=== PATIENT | male | born 1940 | race Caucasian/White ===

== ENCOUNTER 2017-06-16 19:11 | Emergency (ER) | payer OTHER, MEDICARE ==
[2017-06-16 19:25] VITALS: BP 169/83
[2017-06-16] MEDS ORDERED: Diphtheria,Pertussis(Acell),Tetanus Vaccine 0.5 ML SDV IM ONE (19:54)
[2017-06-16] MEDS ORDERED: Cephalexin 500 MG Cap PO ONE (19:55)
--- NOTE | 2017-06-16 20:08 | EDM.PDOC ---
ED HPI GENERAL MEDICAL PROBLEM - General Chief Complaint: Laceration Stated Complaint: FINGER LACERATION Time Seen by Provider: 06/16/17 19:20 Source of Information: Reports: Patient, Family (, son), RN Notes Reviewed History Limitations: Reports: Physical Impairment (Hard of hearing) - History of Present Illness INITIAL COMMENTS - FREE TEXT/NARRATIVE: The patient states that he had a coworker were attempting to move a heavy high- pressure pipe around 17:15 today. He lowered his end of the pipe onto the back of a pickup truck, onto which was welded some metal, and his left index finger was pinched between the pipe and he truck metal. The patient presents with maceration to the volar aspect of his left second finger. He is otherwise uninjured. He denies prior injury to his left second finger. The patient does not know when his last test this vaccination was. The patient's PCP is Dr. Crane. Left 2-Index finger Pain Score (Numeric/FACES): 3 - Related Data Allergies Allergy/AdvReac Type Severity Reaction Status Date / Time Penicillins Allergy Other Verified 06/16/17 19:25 Home Meds: Home Meds Allopurinol [Zyloprim] 300 mg PO DAILY 06/16/17 [History] Antiox#10/Om3/DHA/EPA/Lut/Zeax [I-Caps with Lutein-[place] 3 SFG] 1 tab PO DAILY 06/16/17 [History] Hydrochlorothiazide 25 mg PO DAILY 06/16/17 [History] Lisinopril 30 mg PO DAILY 06/16/17 [History] Metoprolol Succinate [Toprol XL] 25 mg PO DAILY 06/16/17 [History] Pravastatin [Pravachol] 20 mg PO DAILY 06/16/17 [History] amLODIPine [Norvasc] 10 mg PO DAILY 06/16/17 [History] Past Medical History Cardiovascular History: Reports: High Cholesterol, Hypertension Respiratory History: Reports: Sleep Apnea Musculoskeletal History: Reports: Gout - Past Surgical History HEENT Surgical History: Reports: Adenoidectomy, Naso-Sinus Surgery, Tonsillectomy, Other (See Below) (Uvulectomy) Musculoskeletal Surgical History: Reports: Shoulder Surgery (right, arthroscopic ), Other (See Below) (Right hand trigger finger release) Social & Family History - Tobacco Use Smoking Status *Q: Never Smoker - Caffeine Use Caffeine Use: Reports: Other Other Caffeine Use: coffee pouches - Alcohol Use Alcohol Use History: No - Recreational Drug Use Recreational Drug Use: No - Living Situation & Occupation Living situation: Reports: , with Spouse 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) ED ROS GENERAL - Review of Systems Review Of Systems: See Below Constitutional: Reports: No Symptoms HEENT: Reports: No Symptoms Respiratory: Reports: No Symptoms Cardiovascular: Reports: No Symptoms Endocrine: Reports: No Symptoms GI/Abdominal: Reports: No Symptoms : Reports: No Symptoms Musculoskeletal: Reports: No Symptoms Skin: Reports: No Symptoms Neurological: Reports: No Symptoms Psychiatric: Reports: No Symptoms Hematologic/Lymphatic: Reports: No Symptoms Immunologic: Reports: No Symptoms ED EXAM, SKIN/RASH Exam: See Below Exam Limited By: No Limitations General Appearance: Alert, WD/WN, No Apparent Distress Extremities: Other (There is a linear laceration that extends from the ulnar aspect of the left second fingernail towards the volar/ulnar aspect of the finger, just distal to the DIP. There is a macerated wound with apparent avulsion of skin extending from just distal to the DIP joint, extending to just distal to the PIP joint, on the volar/ulnar aspect of the finger. Sensation of the finger is normal. Normal flexion of the DIP, without suggestion of flexor tendon injury.) Course - Vital Signs Last Recorded V/S: Last Vital Signs Temp 36.2 C 06/16/17 19:20 Pulse 62 06/16/17 19:20 Resp 16 06/16/17 19:20 BP 169/83 H 06/16/17 19:20 Pulse Ox 95 06/16/17 19:20 - Orders/Labs/Meds Orders: Active Orders 24 hr Category Date Time Status Vaccines to be Administered [RC] PER UNIT ROUTINE Care 06/16/17 19:54 Active Fingers Second Digit Lt F1 [CR] Stat Exams 06/16/17 19:56 Taken Meds: Medications Discontinued Medications Generic Name Dose Route Start Last Admin Trade Name Freq PRN Reason Stop Dose Admin Cephalexin 500 mg 06/16/17 19:55 06/16/17 20:12 Keflex PO 06/16/17 19:56 500 mg ONETIME ONE Administration Diphtheria/Tetanus/Acell Pertussis 0.5 ml 06/16/17 19:54 06/16/17 20:09 Adacel IM 06/16/17 19:55 0.5 ml .ONCE ONE Administration - Re-Assessments/Exams Free Text/Narrative Re-Assessment/Exam: 06/16/17 20:04 The patient declined an offer for pain medication. He agreed to receive a tetanus vaccination. 06/16/17 20:30 4-view radiographs of the left second finger appear to be unremarkable. No fracture or dislocation identified. Formal read per the Radiologist pending. 06/16/17 20:35 Plan of care discussed with the patient, his , and son. I will refer the patient to Dr. Stanford Payan, a hand surgeon at [facility], as Dr. Garcia is out of town. The patient has been started on oral Keflex, and I will prescribe an additional 7 days via [facility]. Once again, the patient declined a prescription for pain medication. I will have him take ibuprofen as needed. Departure - Departure Time of Disposition: 20:35 Disposition: Home, Self-Care 01 Condition: Good Clinical Impression: Crushing injury of left index finger - Discharge Information Referrals: Raul Crane MD [Primary Care Provider] - Stanford Payan MD [Ordering Only Provider] - Forms: ED Department Discharge Additional Instructions: You were seen in the emergency room after your left index finger was crushed at work. Workup in the ER included x-rays of your finger. Your finger is not broken. The cuts to your finger are too extensive to be sewn in the ER. You will need to follow-up with a hand surgeon. Follow-up with Dr. Stanford Payan at the next available appointment. Your finger was dressed. Do not remove the dressing. Do not allow the dressing to get wet. Take [id number] ibuprofen as needed for discomfort. You have been started on the antibiotic Keflex. Take one tablet every 6 hours, as prescribed. Finish the entire prescription unless told otherwise by the hand surgeon. If any other problems, please do not hesitate to return to the ER. - My Orders Last 24 Hours: My Active Orders 06/16/17 19:54 Vaccines to be Administered [RC] PER UNIT ROUTINE 06/16/17 19:56 Fingers Second Digit Lt F1 [CR] Stat - Assessment/Plan Last 24 Hours: My Active Orders 06/16/17 19:54 Vaccines to be Administered [RC] PER UNIT ROUTINE 06/16/17 19:56 Fingers Second Digit Lt F1 [CR] Stat
--- NOTE | 2017-06-17 07:58 | CR ---
Left second finger: Four views of the left second finger were obtained. Comparison: No previous study. Soft tissue swelling is identified. No acute fracture, dislocation or other acute bony abnormality is identified. Slight degenerative change is seen within the distal second metacarpal head. Impression: 1. Soft tissue swelling. Minimal degenerative change. 2. No acute bony abnormality is identified. Diagnostic code #2
== END 2017-06-16 21:00 | disposition home or self-care (01) ==
LOC: JD.ED 19:11
DX: S61.211A Laceration without foreign body of left index finger without damage to nail, initial encounter (principal); S67.191A Crushing injury of left index finger, initial encounter; I10 Essential (primary) hypertension; E78.00 Pure hypercholesterolemia, unspecified; G47.30 Sleep apnea, unspecified; Z98.890 Other specified postprocedural states; Z79.899 Other long term (current) drug therapy; Z88.0 Allergy status to penicillin; W23.0XXA Caught, crushed, jammed, or pinched between moving objects, initial encounter; Y92.69 Other specified industrial and construction area as the place of occurrence of the external cause; Y99.0 Civilian activity done for income or pay; Z23 Encounter for immunization
CPT/HCPCS: 73140; 90471; 90715; 99284; A9270; 99283

== ENCOUNTER 2017-07-31 19:37 | Emergency (ER) | payer MEDICARE, OTHER ==
[2017-07-31 19:51] VITALS: BP 177/87
[2017-07-31] MEDS ORDERED: Acetaminophen/HYDROcodone 325-5 MG Tab PO ONE (20:05)
[2017-07-31] MEDS ORDERED: Indomethacin 25 MG Cap PO ONE (21:14)
--- NOTE | 2017-07-31 21:30 | EDM.PDOC ---
ED HPI GENERAL MEDICAL PROBLEM - General Chief Complaint: Lower Extremity Injury/Pain Stated Complaint: POSSIBLE GOUT IN RIGHT KNEE Time Seen by Provider: 07/31/17 19:49 Source of Information: Reports: Patient, Family History Limitations: Reports: No Limitations - History of Present Illness INITIAL COMMENTS - FREE TEXT/NARRATIVE: The patient presents with right knee pain. He does not remember a specific instance when he injured it. It hurts more on the medial aspect of the knee. He has no redness. He has a history of gout but he has not had an attack for 10 years. 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 He has no other pain. Onset: Gradual Duration: Day(s): Location: Reports: Lower Extremity, Right (Knee) Quality: Reports: Sharp Severity: Moderate Improves with: Reports: Immobilization Worsens with: Reports: Movement Associated Symptoms: Reports: No Other Symptoms Right Knee Pain Score (Numeric/FACES): 9 - Related Data Allergies Allergy/AdvReac Type Severity Reaction Status Date / Time Penicillins Allergy Other Verified 07/31/17 19:50 Home Meds: Home Meds Allopurinol [Zyloprim] 300 mg PO DAILY 06/16/17 [History] Antiox#10/Om3/DHA/EPA/Lut/Zeax [I-Caps with Lutein-[place] 3 SFG] 1 tab PO DAILY 06/16/17 [History] Hydrochlorothiazide 25 mg PO DAILY 06/16/17 [History] Lisinopril 30 mg PO DAILY 06/16/17 [History] Metoprolol Succinate [Toprol XL] 25 mg PO DAILY 06/16/17 [History] Pravastatin [Pravachol] 20 mg PO DAILY 06/16/17 [History] amLODIPine [Norvasc] 10 mg PO DAILY 06/16/17 [History] Indomethacin [Indomethacin ER] 75 mg PO DAILY PRN #20 capsule.er 07/31/17 [Rx] Past Medical History Cardiovascular History: Reports: High Cholesterol, Hypertension Respiratory History: Reports: Sleep Apnea Musculoskeletal History: Reports: Gout - Past Surgical History HEENT Surgical History: Reports: Adenoidectomy, Naso-Sinus Surgery, Tonsillectomy, Other (See Below) Musculoskeletal Surgical History: Reports: Shoulder Surgery, Other (See Below) Social & Family History - Tobacco Use Smoking Status *Q: Unknown Ever Smoked - Caffeine Use Caffeine Use: Reports: Other Other Caffeine Use: coffee pouches - Recreational Drug Use Recreational Drug Use: No - Living Situation & Occupation Living situation: Reports: , with Spouse 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) Review of Systems - Review of Systems Review Of Systems: See Below Constitutional: Reports: No Symptoms Eyes: Reports: No Symptoms Ears: Reports: No Symptoms Nose: Reports: No Symptoms Mouth/Throat: Reports: No Symptoms Respiratory: Reports: No Symptoms Cardiovascular: Reports: No Symptoms GI/Abdominal: Reports: No Symptoms Genitourinary: Reports: No Symptoms Musculoskeletal: Reports: Joint Pain (Right knee) ED EXAM, GENERAL - Physical Exam Exam: See Below Exam Limited By: No Limitations General Appearance: Alert, No Apparent Distress Ears: Normal External Exam Nose: Normal Inspection Head: Atraumatic, Normocephalic Neck: Normal Inspection Respiratory/Chest: No Respiratory Distress, Lungs Clear, Normal Breath Sounds Cardiovascular: Regular Rate, Rhythm, No Edema, No Murmur GI/Abdominal: Soft, Non-Tender, No Organomegaly, No Mass Extremities: Other (Mild edema and he has pain upon palpation to the right medial knee. No redness noted. He has good sensation and pulses distally.) Course - Vital Signs Last Recorded V/S: Last Vital Signs Temp 98.1 F 07/31/17 19:47 Pulse 70 07/31/17 19:47 Resp 18 07/31/17 19:47 BP 177/87 H 07/31/17 19:47 Pulse Ox 98 07/31/17 19:47 - Orders/Labs/Meds Orders: Active Orders 24 hr Category Date Time Status Knee Min 4V Rt [CR] Stat Exams 07/31/17 20:08 Taken Meds: Medications Discontinued Medications Generic Name Dose Route Start Last Admin Trade Name Maranda PRN Reason Stop Dose Admin Hydrocodone Bitart/Acetaminophen 2 tab 07/31/17 20:05 07/31/17 20:29 [place] 325-5 Mg PO 07/31/17 20:06 2 tab ONETIME ONE Administration Indomethacin 50 mg 07/31/17 21:14 07/31/17 21:20 Indocin PO 07/31/17 21:15 50 mg ONETIME ONE Administration - Re-Assessments/Exams Free Text/Narrative Re-Assessment/Exam: 07/31/17 21:35 I gave him some hydrocodone before the x-ray. The x-ray shows no FB and there is moderate osteoarthritis. I believe this is a flair up of arthritis. I will give him a dose of indomethacin and a prescription or more. Departure - Departure Time of Disposition: 21:40 Disposition: Home, Self-Care 01 Condition: Good Clinical Impression: Osteoarthritis of right knee Qualifiers: Osteoarthritis type: primary Qualified Code(s): M17.11 - Unilateral primary osteoarthritis, right knee - Discharge Information Prescriptions: Indomethacin [Indomethacin ER] 75 mg PO DAILY PRN #20 capsule.er PRN Reason: Pain Referrals: Raul Crane MD [Primary Care Provider] - Forms: ED Department Discharge Additional Instructions: Take the indomethacin daily as needed for pain. Please return if you are worse. - My Orders Last 24 Hours: My Active Orders 07/31/17 20:08 Knee Min 4V Rt [CR] Stat - Assessment/Plan Last 24 Hours: My Active Orders 07/31/17 20:08 Knee Min 4V Rt [CR] Stat
--- NOTE | 2017-08-01 08:10 | CR ---
Right knee: Four views of the right knee were obtained. Comparison: No previous knee exam. Incidental spur is noted at the attachment of the quadriceps tendon to the patella. Mild medial joint space narrowing is seen. Lateral joint space is preserved. No joint effusion is identified. No acute fracture or other abnormality is identified. Impression: 1. Mild degenerative change. 2. Nothing acute is seen. Diagnostic code #2
== END 2017-07-31 21:58 | disposition home or self-care (01) ==
LOC: JD.ED 19:37 → SUPCPDRO 19:37 → JD.ED 21:58
DX: M17.11 Unilateral primary osteoarthritis, right knee (principal); E78.00 Pure hypercholesterolemia, unspecified; I10 Essential (primary) hypertension; Z88.0 Allergy status to penicillin; Z79.899 Other long term (current) drug therapy
CPT/HCPCS: 73564; 99283; A9270

== ENCOUNTER 2018-06-25 15:44 | Emergency (ER) | payer MEDICARE, OTHER ==
[2018-06-25 16:12] VITALS: BP 170/74
--- NOTE | 2018-06-25 17:20 | EDM.PDOC ---
ED HPI GENERAL MEDICAL PROBLEM - General Chief Complaint: Lower Extremity Injury/Pain Stated Complaint: LEFT HIP Time Seen by Provider: 06/25/18 16:18 Source of Information: Reports: Patient History Limitations: Reports: No Limitations - History of Present Illness INITIAL COMMENTS - FREE TEXT/NARRATIVE: 77-year-old male presents for evaluation and treatment of pain to the left hip. Patient reports he fell about 3 weeks ago. States that he was walking tripped over a rock. He fell and hit his bilateral knees and his left hip. He states since then he has had pain to the left hip, left buttocks and lower back. Worse with movement and ambulation. Has some abrasions to his bilateral knees but no bruising or abrasions noted to the left hip. Left Hip Pain Score (Numeric/FACES): 2 - Related Data Allergies Allergy/AdvReac Type Severity Reaction Status Date / Time Penicillins Allergy Other Verified 06/25/18 16:12 Home Meds: Home Meds Allopurinol [Zyloprim] 300 mg PO DAILY 06/16/17 [History] Antiox#10/Om3/DHA/EPA/Lut/Zeax [I-Caps with Lutein-[place] 3 SFG] 1 tab PO DAILY 06/16/17 [History] Hydrochlorothiazide 25 mg PO DAILY 06/16/17 [History] Lisinopril 30 mg PO DAILY 06/16/17 [History] Metoprolol Succinate [Toprol XL] 25 mg PO DAILY 06/16/17 [History] Pravastatin [Pravachol] 20 mg PO DAILY 06/16/17 [History] amLODIPine [Norvasc] 10 mg PO DAILY 06/16/17 [History] Indomethacin [Indomethacin ER] 75 mg PO DAILY PRN #20 capsule.er 07/31/17 [Rx] metFORMIN [Glucophage XR] 500 mg PO DAILY 06/25/18 [History] Past Medical History Cardiovascular History: Reports: High Cholesterol, Hypertension Respiratory History: Reports: Sleep Apnea Musculoskeletal History: Reports: Gout - Past Surgical History HEENT Surgical History: Reports: Adenoidectomy, Naso-Sinus Surgery, Tonsillectomy, Other (See Below) Musculoskeletal Surgical History: Reports: Shoulder Surgery, Other (See Below) Social & Family History - Tobacco Use Smoking Status *Q: Never Smoker - Caffeine Use Caffeine Use: Reports: None Other Caffeine Use: coffee pouches - Recreational Drug Use Recreational Drug Use: No - Living Situation & Occupation Living situation: Reports: , with Spouse 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 Denies: Bruising ED EXAM, GENERAL - Physical Exam Exam: See Below Exam Limited By: No Limitations General Appearance: Alert, WD/WN, No Apparent Distress, Obese Respiratory/Chest: No Respiratory Distress, Lungs Clear, Normal Breath Sounds Cardiovascular: Normal Peripheral Pulses, Regular Rate, Rhythm, No Murmur Back Exam: Normal Inspection, Paraspinal Tenderness (left SI joint). No: Vertebral Tenderness Extremities: Normal Inspection (no leg shortening, no exernal rotation), Normal Range of Motion (no pain with rotation to the bilteral hips), Other (tenderness to the left iliac crest and left hip) Neurological: Alert, Oriented, Normal Cognition, Normal Gait Psychiatric: Normal Affect, Normal Mood Skin Exam: Warm, Dry, Normal Color, Wound/Incision (superficial abrasions to the bilateral knees). No: Ecchymosis Course - Vital Signs Last Recorded V/S: Last Vital Signs Temp 98.4 F 06/25/18 16:05 Pulse 55 L 06/25/18 16:05 Resp 13 06/25/18 16:05 BP 170/74 H 06/25/18 16:05 Pulse Ox 98 06/25/18 16:05 - Radiology Interpretation Free Text/Narrative:: xray of the lumbar spine shows no acute fracture or dislocation. Degenerative change. Atherosclerosis present in the aorta. xray of the pelvis and left hip shows no acute fractures or dislocations - Re-Assessments/Exams Free Text/Narrative Re-Assessment/Exam: 06/25/18 17:51 Reviewed the x-ray results with the patient. Recommend follow-up with orthopedics. Tylenol , Motrin and a cane as needed. Patient has a cane a home. Discharge instructions as documented. Departure - Departure Time of Disposition: 17:53 Disposition: Home, Self-Care 01 Condition: Fair Clinical Impression: Hip pain - Discharge Information *PRESCRIPTION DRUG MONITORING PROGRAM REVIEWED*: No *COPY OF PRESCRIPTION DRUG MONITORING REPORT IN PATIENT GLORIA: No Instructions: Hip Pain Referrals: Raul Crane MD [Primary Care Provider] - Alvin Patel MD [Physician] - Forms: ED Department Discharge Additional Instructions: [id number] Tylenol or Motrin as needed for pain relief. Use a cane as needed for discomfort with ambulation. may try ice or heat for additional pain relief. Follow-up with orthopedics. Recommend Dr. Lozada. Call [phone] to schedule with him. Please return the ER if your symptoms change or worsen. r
--- NOTE | 2018-06-28 06:52 | CR ---
Pelvis and left hip: AP view of the pelvis was obtained as well as AP and frog-leg lateral views of the right and left hip. Comparison: No prior study. Joint spaces within both hips are maintained. Sacroiliac joints are within normal limits. No acute fracture or other bony abnormality is identified. Slight vascular calcification is noted. Impression: 1. No acute abnormality is identified on AP pelvis or on two-view left hip exam. Diagnostic code #2
--- NOTE | 2018-06-28 06:52 | CR ---
Lumbar spine: AP and lateral views of the lumbar spine were obtained. Comparison: No prior lumbar spine study. Mild disc space narrowing is noted at T12-L1 through L2-L3. Slight posterior disc space narrowing is noted at L5-S1. Scattered endplate osteophytes are seen. Pedicles are intact. Transverse and spinous processes are intact. Sacroiliac joints are within normal limits. No fracture or other bony abnormality is seen. Vascular calcification is noted. Impression: 1. Degenerative change as described above. Vascular calcification. 2. Nothing acute is identified on two-view lumbar spine study. Diagnostic code #1
== END 2018-06-25 18:03 | disposition home or self-care (01) ==
LOC: JD.ED 15:44 → SUPCPDRO 15:44 → JD.ED 18:03
DX: S80.212A Abrasion, left knee, initial encounter (principal); S80.211A Abrasion, right knee, initial encounter; M25.552 Pain in left hip; I10 Essential (primary) hypertension; E78.00 Pure hypercholesterolemia, unspecified; Z88.0 Allergy status to penicillin; Z79.899 Other long term (current) drug therapy; W19.XXXA Unspecified fall, initial encounter
CPT/HCPCS: 72100; 72100-26; 73502-26-LT; 73502-LT; 99283

== ENCOUNTER → 2019-10-23 | Day surgery (SDC) | payer BC, MEDICARE, OTHER ==
[~2019-10-23] MED LIST: Lidocaine 1% PF 2 ML SDV INJECT SCH; Pilocarpine 4% Ophth Soln 15 ML Bot EYERT SCH; Tetracaine HCl/PF 0.5% 4 ML Bottle EYERT SCH
[2019-10-23] MEDS: Polymyxin B/Trimethoprim 10 ML Bottle EYERT SCH ×2 (11:22→12:06)
[2019-10-23] MEDS: Brimonidine 0.2% Ophth Soln 5 ML Bottle EYERT SCH ×2 (11:27→12:13)
[2019-10-23 11:30] VITALS: BP 126/64; PULSE 53
[2019-10-23] MEDS: Phenylephrine 2.5% Ophth Soln 2 ML Bot EYERT SCH ×4 (11:32→12:23)
[2019-10-23] MEDS: Tropicamide 1% Ophth Soln 15 ML Bottle EYERT SCH ×4 (11:37→12:30)
--- NOTE | 2019-10-23 11:53 | PCM.PREANE ---
Preanesthetic Assessment - Anesthesia/Transfusion/Family Hx Anesthesia History: Prior Anesthesia Without Reaction Family History of Anesthesia Reaction: No Transfusion History: No Prior Transfusion(s) - Review of Systems General: No Symptoms, Other (obesity) Pulmonary: Other (asthma, ALEXUS with HTN) Cardiovascular: Other (HTN) Gastrointestinal: No Symptoms Neurological: No Symptoms Other: Reports: None - Physical Assessment NPO Status Date: 10/22/19 NPO Status Time: 22:00 Vital Signs: Last Vital Signs Temp 36.7 C 10/23/19 11:13 Pulse 53 L 10/23/19 11:13 Resp 16 10/23/19 11:13 BP 126/64 10/23/19 11:13 Pulse Ox 95 10/23/19 11:13 Height: 1.8 m Weight: 127.006 kg ASA Class: 2 Mental Status: Alert & Oriented x3 Airway Class: Mallampati = 3 Dentition: Reports: Normal Dentition Thyro-Mental Finger Breadths: 3 Mouth Opening Finger Breadths: 3 ROM/Head Extension: Full Lungs: Clear to Auscultation, Normal Respiratory Effort Cardiovascular: Regular Rate, Regular Rhythm - Allergies Allergies/Adverse Reactions: Allergies Allergy/AdvReac Type Severity Reaction Status Date / Time Penicillins Allergy Other Verified 10/22/19 15:32 - Blood Blood Available: No Product(s) Available: None - Anesthesia Plan Beta Marshall: Metoprolol Med Last Dose Date: 10/22/19 Med Last Dose Time: 15:30 - Acknowledgements Anesthesia Type Planned: MAC Pt an Appropriate Candidate for the Planned Anesthesia: Yes Alternatives and Risks of Anesthesia Discussed w Pt/Guardian: Yes Pt/Guardian Understands and Agrees with Anesthesia Plan: Yes PreAnesthesia Questionnaire Cardiovascular History: Reports: High Cholesterol, Hypertension Respiratory History: Reports: Sleep Apnea Musculoskeletal History: Reports: Gout - Past Surgical History HEENT Surgical History: Reports: Adenoidectomy, Naso-Sinus Surgery, Tonsillectomy, Other (See Below) Musculoskeletal Surgical History: Reports: Shoulder Surgery, Other (See Below) - HOME MEDS Home Medications: Home Meds Allopurinol [Zyloprim] 300 mg PO DAILY 06/16/17 [History] Antiox.mv No.10/Omeg3s/Lut/John [I-Caps with Lutein-[place] 3 SFG] 1 tab PO DAILY 06/16/17 [History] Hydrochlorothiazide 25 mg PO DAILY 06/16/17 [History] Lisinopril 30 mg PO DAILY 06/16/17 [History] Metoprolol Succinate [Toprol XL] 25 mg PO DAILY 06/16/17 [History] Pravastatin [Pravachol] 20 mg PO DAILY 06/16/17 [History] Diltiazem HCl [Cardizem Cd] 180 mg PO DAILY 10/22/19 [History] Pravastatin [Pravachol] 20 mg PO DAILY 10/22/19 [History] - CURRENT (IN HOUSE) MEDS Current Meds: Current Medications Brimonidine Tartrate (Alphagan 0.2% Ophth Soln) 0 ml EYERT ASDIRECTED IRISH Stop: 10/23/19 18:00 Last Admin: 10/23/19 11:27 Dose: 1 drop Lidocaine HCl (Xylocaine-Mpf 1%) 1 ml INJECT ASDIRECTED IRISH Stop: 10/23/19 18:00 Phenylephrine HCl (Dean-Synephrine 2.5% Ophth Soln) 0 ml EYERT ASDIRECTED IRISH Stop: 10/23/19 18:00 Last Admin: 10/23/19 11:32 Dose: 1 drop Pilocarpine HCl (Pilocar 4% Ophth Soln) 0 ml EYERT ASDIRECTED IRISH Stop: 10/23/19 18:00 Polymyxin/Trimethoprim Sulfate (Polytrim Ophth Soln) 0 ml EYERT ASDIRECTED IRISH Stop: 10/23/19 18:00 Last Admin: 10/23/19 11:22 Dose: 1 drop Tetracaine HCl (Tetracaine 0.5% Steri-Unit Jo) 0 ml EYERT ASDIRECTED IRISH Stop: 10/23/19 18:00 Tropicamide (Mydriacyl 1% Oph Soln) 0 ml EYERT ASDIRECTED IRISH Stop: 10/23/19 18:00 Last Admin: 10/23/19 11:37 Dose: 1 drop
--- NOTE | 2019-10-23 13:31 | PCM48HPAN ---
Post Anesthesia Note - EVALUATION WITHIN 48HRS OF ANESTHETIC Vital Signs in Normal Range: Yes Patient Participated in Evaluation: Yes Respiratory Function Stable: Yes Airway Patent: Yes Cardiovascular Function Stable: Yes Hydration Status Stable: Yes Pain Control Satisfactory: Yes Nausea and Vomiting Control Satisfactory: Yes Mental Status Recovered: Yes Vital Signs: Last Vital Signs Temp 36.7 C 10/23/19 11:13 Pulse 53 L 10/23/19 11:13 Resp 16 10/23/19 11:13 BP 126/64 10/23/19 11:13 Pulse Ox 95 10/23/19 11:13
== END ==
LOC: JD.SDS 10:45
PROVIDERS: ATTEND Ophthalmology
DX: H25.813 Combined forms of age-related cataract, bilateral (principal); H35.363 Drusen (degenerative) of macula, bilateral; H35.3132 Nonexudative age-related macular degeneration, bilateral, intermediate dry stage; H02.834 Dermatochalasis of left upper eyelid; H02.831 Dermatochalasis of right upper eyelid; H16.103 Unspecified superficial keratitis, bilateral; H16.223 Keratoconjunctivitis sicca, not specified as Sjogren's, bilateral; E78.00 Pure hypercholesterolemia, unspecified; I10 Essential (primary) hypertension; M10.9 Gout, unspecified; Z88.0 Allergy status to penicillin
CPT/HCPCS: 66984; C1780

== ENCOUNTER 2019-11-29 07:11 | Day surgery (SDC) | payer BC, MEDICARE ==
[2019-11-29] MEDS: Polymyxin B/Trimethoprim 10 ML Bottle EYELF SCH ×4 (07:28→09:25)
[2019-11-29] MEDS: Brimonidine 0.2% Ophth Soln 5 ML Bottle EYELF SCH ×4 (07:33→09:25)
[2019-11-29] MEDS: Phenylephrine 2.5% Ophth Soln 2 ML Bot EYELF SCH ×6 (07:38→09:22)
[2019-11-29] MEDS: Tropicamide 1% Ophth Soln 15 ML Bottle EYELF SCH ×4 (07:43→08:34)
--- NOTE | 2019-11-29 07:43 | PCM.PREANE ---
Preanesthetic Assessment - Anesthesia/Transfusion/Family Hx Anesthesia History: Prior Anesthesia Without Reaction Family History of Anesthesia Reaction: No Transfusion History: No Prior Transfusion(s) Intubation History: Unknown - Review of Systems General: No Symptoms Pulmonary: No Symptoms Cardiovascular: No Symptoms (HTN), Lightheadedness (postural changes) Gastrointestinal: No Symptoms (GERD with certain foods) Neurological: No Symptoms Other: Reports: None - Physical Assessment NPO Status Date: 11/28/19 NPO Status Time: 16:00 Vital Signs: HR: 53 BP: 132/65 Sat: 94% Temp: 97 Resp: 16 Height: 1.83 m Weight: 168 kg ASA Class: 2 Mental Status: Alert & Oriented x3 Airway Class: Mallampati = 2 Dentition: Reports: Normal Dentition, Missing Tooth/Teeth, Caries Thyro-Mental Finger Breadths: 3 Mouth Opening Finger Breadths: 3 ROM/Head Extension: Full Lungs: Clear to Auscultation, Normal Respiratory Effort Cardiovascular: Regular Rate, Regular Rhythm - Allergies Allergies/Adverse Reactions: Allergies Allergy/AdvReac Type Severity Reaction Status Date / Time Penicillins Allergy Rash Verified 11/26/19 14:48 - Anesthesia Plan Pre-Op Medication Ordered: Beta Marshall Beta Marshall: Metoprolol Med Last Dose Date: 11/28/19 Med Last Dose Time: 16:00 - Acknowledgements Anesthesia Type Planned: MAC Pt an Appropriate Candidate for the Planned Anesthesia: Yes Alternatives and Risks of Anesthesia Discussed w Pt/Guardian: Yes Pt/Guardian Understands and Agrees with Anesthesia Plan: Yes PreAnesthesia Questionnaire Cardiovascular History: Reports: High Cholesterol, Hypertension Respiratory History: Reports: Sleep Apnea Musculoskeletal History: Reports: Gout - Past Surgical History HEENT Surgical History: Reports: Adenoidectomy, Naso-Sinus Surgery, Tonsillectomy, Other (See Below) Musculoskeletal Surgical History: Reports: Shoulder Surgery, Other (See Below) - HOME MEDS Home Medications: Home Meds Allopurinol [Zyloprim] 300 mg PO BEDTIME 06/16/17 [History] Antiox.mv No.10/Omeg3s/Lut/John [I-Caps with Lutein-[place] 3 SFG] 1 tab PO BEDTIME 06/16/17 [History] Hydrochlorothiazide 50 mg PO BEDTIME 06/16/17 [History] Lisinopril 30 mg PO BEDTIME 06/16/17 [History] Diltiazem HCl [Cardizem Cd] 180 mg PO BEDTIME 10/22/19 [History] Metoprolol Succinate 100 mg PO BEDTIME 11/26/19 [History] Pravastatin [Pravachol] 20 mg PO BEDTIME 11/26/19 [History] - CURRENT (IN HOUSE) MEDS Current Meds: Current Medications Brimonidine Tartrate (Alphagan 0.2% Ophth Soln) 0 ml EYELF ASDIRECTED IRISH Stop: 11/29/19 18:00 Lidocaine HCl (Xylocaine-Mpf 1%) 0 ml INJECT ASDIRECTED IRISH Stop: 11/29/19 18:00 Phenylephrine HCl (Dean-Synephrine 2.5% Ophth Soln) 0 ml EYELF ASDIRECTED IRISH Stop: 11/29/19 18:00 Pilocarpine HCl (Pilocar 4% Ophth Soln) 0 ml EYELF ASDIRECTED IRISH Stop: 11/29/19 18:00 Polymyxin/Trimethoprim Sulfate (Polytrim Ophth Soln) 0 ml EYELF ASDIRECTED IRISH Stop: 11/29/19 18:00 Tetracaine HCl (Tetracaine 0.5% Steri-Unit Jo) 0 ml EYELF ASDIRECTED IRISH Stop: 11/29/19 18:00 Tropicamide (Mydriacyl 1% Ophth Soln) 0 ml EYELF ASDIRECTED IRISH Stop: 11/29/19 18:00
[2019-11-29 08:02] VITALS: PULSE 53
[2019-11-29] MEDS: Tetracaine HCl/PF 0.5% 4 ML Bottle EYELF SCH ×3 (08:48→09:22)
[2019-11-29] MEDS: Lidocaine 1% PF 2 ML SDV INJECT SCH ×2 (09:14→09:22)
[2019-11-29] MEDS: Pilocarpine 4% Ophth Soln 15 ML Bot EYELF SCH ×2 (09:23→09:25)
--- NOTE | 2019-11-29 09:26 | PCM48HPAN ---
Post Anesthesia Note - EVALUATION WITHIN 48HRS OF ANESTHETIC Vital Signs in Normal Range: Yes Patient Participated in Evaluation: Yes Respiratory Function Stable: Yes Airway Patent: Yes Cardiovascular Function Stable: Yes Hydration Status Stable: Yes Pain Control Satisfactory: Yes Nausea and Vomiting Control Satisfactory: Yes Mental Status Recovered: Yes Vital Signs: Last Vital Signs Temp 36.1 C 11/29/19 07:15 Pulse 53 L 11/29/19 07:15 Resp 16 11/29/19 07:15 BP 132/65 11/29/19 07:15 Pulse Ox 94 L 11/29/19 07:15
[2019-11-29] MEDS ORDERED: Cefuroxime 10 MG/ML SYRINGE EYELF SCH (09:30)
[2019-11-29 09:47] VITALS: BP 130/65
== END 2019-11-29 09:36 | disposition home or self-care (01) ==
LOC: JD.SDS 07:11
PROVIDERS: ATTEND Ophthalmology
DX: H25.812 Combined forms of age-related cataract, left eye (principal); E78.00 Pure hypercholesterolemia, unspecified; I10 Essential (primary) hypertension; J45.909 Unspecified asthma, uncomplicated; M10.9 Gout, unspecified; Z88.0 Allergy status to penicillin; Z79.899 Other long term (current) drug therapy
CPT/HCPCS: 66984; J0697; J2001; C1780

== ENCOUNTER 2020-03-08 23:22 | Emergency (ER) | payer BC, MEDICARE ==
[2020-03-08 23:39] VITALS: BP 180/95; PULSE 70
[2020-03-09] MEDS ORDERED: Clindamycin Phosphate 300 MG/2 ML SDV IM ONE (00:07)
[2020-03-09] MEDS ORDERED: Morphine 4 MG/ML Syringe IM ONE (00:18)
--- NOTE | 2020-03-09 00:19 | EDM.PDOC ---
ED HPI GENERAL MEDICAL PROBLEM - General Chief Complaint: ENT Problem Stated Complaint: TOOTHACHE Time Seen by Provider: 03/08/20 23:25 Source of Information: Reports: Patient History Limitations: Reports: No Limitations - History of Present Illness INITIAL COMMENTS - FREE TEXT/NARRATIVE: TRIAGE NOTE -- Pt states hes had tooth pain in left upper teeth since tuesday. Pt has multiple broken/decaying teeth. Denies fever, nausea, and vomiting. Afebrile in ER. As above. Patient has been unable to get in to see a dentist. He probably needs a root canal. The pandemic is made dental appointments difficult. There is been no fever or any other sign of acute medical illness otherwise. No strictly identified risk factors otherwise. Has not smoked in many years. Not a diabetic. He has not taken any medication other than some occasional use of Tylenol to moderate symptoms. 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 Left Upper Tooth/Teeth Pain Score (Numeric/FACES): 9 - Related Data Allergies Allergy/AdvReac Type Severity Reaction Status Date / Time Penicillins Allergy Rash Verified 11/26/19 14:48 Home Meds: Home Meds Allopurinol [Zyloprim] 300 mg PO BEDTIME 06/16/17 [History] Antiox.mv No.10/Omeg3s/Lut/John [I-Caps with Lutein-[place] 3 SFG] 1 tab PO BEDTIME 06/16/17 [History] Hydrochlorothiazide 50 mg PO BEDTIME 06/16/17 [History] Lisinopril 30 mg PO BEDTIME 06/16/17 [History] dilTIAZem HCL [Cardizem Cd] 180 mg PO BEDTIME 10/22/19 [History] Metoprolol Succinate 100 mg PO BEDTIME 11/26/19 [History] Pravastatin [Pravachol] 20 mg PO BEDTIME 11/26/19 [History] Clindamycin HCl 300 mg PO Q8H #30 capsule 03/09/20 [Rx] Hydrocodone/Acetaminophen [Hydrocodone-Acetamin 5-300 mg] 1 each PO BID PRN #10 tablet 03/09/20 [Rx] Past Medical History Cardiovascular History: Reports: High Cholesterol, Hypertension Respiratory History: Reports: Sleep Apnea Musculoskeletal History: Reports: Gout - Past Surgical History HEENT Surgical History: Reports: Adenoidectomy, Naso-Sinus Surgery, Tonsillectomy, Other (See Below) Musculoskeletal Surgical History: Reports: Shoulder Surgery, Other (See Below) Social & Family History - Family History Family Medical History: Noncontributory - Tobacco Use Smoking Status *Q: Former Smoker Used Tobacco, but Quit: No Month/Year Tobacco Last Used: 1999 - Caffeine Use Caffeine Use: Reports: Coffee Other Caffeine Use: coffee pouches - Living Situation & Occupation Living situation: Reports: , with Spouse 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 ED EXAM, ENT - Physical Exam Exam: See Below Exam Limited By: No Limitations General Appearance: Alert, WD/WN Eye Exam: Bilateral Eye: EOMI, PERRL Ears: Normal External Exam Nose: Normal Inspection Mouth/Throat: Other (Patient has several dental crowns in varying stages of repair or deterioration. Specifically tooth #7 is broken off but not tender or problematic acutely. #10 is broken deteriorated and quite tender. No evidence of odontogenic soft tissue infection. No evidence of dental abscess.) Head: Atraumatic, Normocephalic Neck: Supple, Non-Tender Respiratory/Chest: No Respiratory Distress, Lungs Clear, Normal Breath Sounds Cardiovascular: Regular Rate, Rhythm, No Edema GI/Abdominal: Soft, Non-Tender Back: Normal Inspection Extremities: Normal Inspection, Non-Tender Neurological: Alert, Oriented, Normal Cognition, No Motor/Sensory Deficits Psychiatric: Normal Affect, Normal Mood Skin: Warm, Dry Course - Vital Signs Last Recorded V/S: Last Vital Signs Temp 36.6 C 03/08/20 23:35 Pulse 70 03/08/20 23:35 Resp 16 03/08/20 23:35 BP 180/95 H 03/08/20 23:35 Pulse Ox 96 03/08/20 23:35 - Orders/Labs/Meds Meds: Medications Discontinued Medications Generic Name Dose Route Start Last Admin Trade Name Freq PRN Reason Stop Dose Admin Clindamycin Phosphate 300 mg 03/09/20 00:07 03/09/20 00:19 Cleocin IM 03/09/20 00:08 300 mg ONETIME ONE Administration Morphine Sulfate 4 mg 03/09/20 00:18 03/09/20 00:24 Morphine IM 03/09/20 00:19 4 mg ONETIME ONE Administration Departure - Departure Time of Disposition: 00:36 Disposition: Home, Self-Care 01 Condition: Good Clinical Impression: Toothache - Discharge Information Prescriptions: Clindamycin HCl 300 mg PO Q8H #30 capsule Hydrocodone/Acetaminophen [Hydrocodone-Acetamin 5-300 mg] 1 each PO BID PRN #10 tablet PRN Reason: Pain (Moderate 4-6) Referrals: Raul Crane MD [Primary Care Provider] - Forms: ED Department Discharge Additional Instructions: You have a tooth ache that needs attention HUMBERTO. Please try to see your dentist on Tuesday or Tuesday of this coming week. In the ER you have received a dose of a narcotic, morphine, to give you some relief. Also an antibiotic is going to be required and you have received your first dose of clindamycin as a shot and this antibiotic is to be continued orally. Do not hesitate to return to the ER for any fever pain you can handle etc. Sepsis Event Note - Evaluation Sepsis Screening Result: No Definite Risk - Focused Exam Vital Signs: Vital Signs Temp Pulse Resp BP Pulse Ox 03/08/20 23:35 36.6 C 70 16 180/95 H 96 Date Exam was Performed: 03/09/20 Time Exam was Performed: 00:30
== END 2020-03-09 00:58 | disposition home or self-care (01) ==
LOC: JD.ED 23:22
DX: K08.89 Other specified disorders of teeth and supporting structures (principal); E78.00 Pure hypercholesterolemia, unspecified; I10 Essential (primary) hypertension; Z88.0 Allergy status to penicillin; Z79.899 Other long term (current) drug therapy; Z87.891 Personal history of nicotine dependence
CPT/HCPCS: 96372; 99282; J2270; S0077; 99283; J3490

== ENCOUNTER 2020-03-09 14:09 | Emergency (ER) | payer BC, MEDICARE ==
--- NOTE | 2020-03-09 14:45 | EDM.PDOC ---
ED HPI GENERAL MEDICAL PROBLEM - General Chief Complaint: ENT Problem Stated Complaint: FACIAL SWELLING FROM TOOTH Time Seen by Provider: 03/09/20 14:19 Source of Information: Reports: Patient History Limitations: Reports: No Limitations - History of Present Illness INITIAL COMMENTS - FREE TEXT/NARRATIVE: Mr. Garcia is a very pleasant 79-year-old man with a past medical history significant for profound hearing loss, with bilateral hearing aids, who, medical records indicate, was seen in this ED around midnight this morning with a complaint of an upper left tooth ache. He was concerned that maybe he had broken a tooth. On examination, tooth #7 was found to be broken off, but not tender. Tooth #10 was broken and deteriorated, and tender. There is no suggestion of an infection or abscess. The patient was given an IM dose of clindamycin and morphine, then discharged home with a prescription for clindamycin 300 mg p.o. Q 8 hrs and [place] 5/325 1 tab p.o. BID #10. The patient now returns to the ED stating that he filled both prescriptions, but he has not started either, since he developed some swelling to his upper left face, and he wanted reassurance that it would be okay to take the antibiotics. He was concerned about an adverse reaction, stating that a friend of his after being stung by a bee. The patient confirmed that he developed the upper left tooth ache around Tuesday , 03/07/2020. He states that he noticed the swelling to his face around 4:30 this morning. He states that his CPAP mask wouldn't fit properly. No recent fever. The patient denies oral drainage. Here in the ED, the patient's initial BP is found to be elevated at 180/82, otherwise, he is hemodynamically stable, afebrile, saturating 94% on room air. The patient's PCP is Dr. Raul Crane, however, [facility] Left Upper Tooth/Teeth Pain Score (Numeric/FACES): 3 - Related Data Allergies Allergy/AdvReac Type Severity Reaction Status Date / Time Penicillins Allergy Rash Verified 03/09/20 14:14 Home Meds: Home Meds Allopurinol [Zyloprim] 300 mg PO BEDTIME 06/16/17 [History] Antiox.mv No.10/Omeg3s/Lut/John [I-Caps with Lutein-[place] 3 SFG] 1 tab PO BEDTIME 06/16/17 [History] Hydrochlorothiazide 50 mg PO BEDTIME 06/16/17 [History] Lisinopril 30 mg PO BEDTIME 06/16/17 [History] dilTIAZem HCL [Cardizem Cd] 180 mg PO BEDTIME 10/22/19 [History] Metoprolol Succinate 100 mg PO BEDTIME 11/26/19 [History] Pravastatin [Pravachol] 20 mg PO BEDTIME 11/26/19 [History] Clindamycin HCl 300 mg PO Q8H #30 capsule 03/09/20 [Rx] Hydrocodone/Acetaminophen [Hydrocodone-Acetamin 5-300 mg] 1 each PO BID PRN #10 tablet 03/09/20 [Rx] Past Medical History Cardiovascular History: Reports: High Cholesterol, Hypertension Respiratory History: Reports: Sleep Apnea (nightly CPAP) Musculoskeletal History: Reports: Gout (suspected) - Past Surgical History HEENT Surgical History: Reports: Adenoidectomy, Cataract Surgery (bilateral), Tonsillectomy, Other (See Below) (Uvulectomy) Musculoskeletal Surgical History: Reports: Shoulder Surgery (arthroscopic), Other (See Below) (Right trigger finger release) Social & Family History - Family History Family Medical History: Noncontributory - Tobacco Use Smoking Status *Q: Never Smoker Second Hand Smoke Exposure: No - Caffeine Use Caffeine Use: Reports: Coffee Other Caffeine Use: coffee pouches - Alcohol Use Alcohol Use History: No - Recreational Drug Use Recreational Drug Use: No - Living Situation & Occupation Living situation: Reports: , with Spouse 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 ED EXAM, ENT - Physical Exam Exam: See Below Exam Limited By: No Limitations General Appearance: Alert, WD/WN, No Apparent Distress Eye Exam: Bilateral Eye: EOMI, Normal Inspection Ears: Normal External Exam, Normal Canal, Normal TMs, Other (Profound hearing loss) Nose: Normal Inspection, Normal Mucousa, No Blood Mouth/Throat: Normal Lips, Normal Oropharynx, Other (Tooth #1 with amalgam filling. Teeth #2, 3 absent. Tooth #4 with amalgam filling. Teeth #8, 9, 10 capped. Tooth #11 (the tooth of concern) with amalgam filling and decay. Minimal associated gingival swelling. No pointing. Teeth #12, 13, 14 absent. Tooth #15 with amalgam filling. Tooth #16 absent. Teeth #17, 18 absent. Tooth #19 with metallic cap. Tooth #20 with amalgam filling. Tooth #29 absent. Tooth #30 with amalgam filling. Teeth #31, 32 absent.) Head: Atraumatic, Facial Swelling (Mild, over left maxilla. No associated erythema.) Neck: Normal Inspection, Supple, Non-Tender, Full Range of Motion. No: Lymphadenopathy (L), Lymphadenopathy (R) Course - Vital Signs Last Recorded V/S: Last Vital Signs Temp 36.1 C 03/09/20 14:15 Pulse 72 03/09/20 14:15 Resp 18 03/09/20 14:15 BP 180/82 H 03/09/20 14:15 Pulse Ox 94 L 03/09/20 14:15 - Re-Assessments/Exams Free Text/Narrative Re-Assessment/Exam: 03/09/20 14:40 As above, the patient just wanted reassurance that he can take his earlier prescribed clindamycin, since his face has begun to swell. I reassured him that it is very important to take the antibiotic as prescribed, and to follow- up with a dentist at the next available appointment. Additionally, the patient may take [id number] ibuprofen, in addition to his prescribed [place], as needed for pain. Departure - Departure Time of Disposition: 14:41 Disposition: Home, Self-Care 01 Condition: Good Clinical Impression: Dental infection - Discharge Information *PRESCRIPTION DRUG MONITORING PROGRAM REVIEWED*: Not Applicable *COPY OF PRESCRIPTION DRUG MONITORING REPORT IN PATIENT GLORIA: Not Applicable Instructions: Preventive Dental Care, Adult Referrals: Raul Crane MD [Primary Care Provider] - Forms: ED Department Discharge Additional Instructions: You were seen in the emergency room after developing left upper facial swelling , associated with a dental infection. As discussed, we recommend that you start taking your previously prescribed clindamycin, 1 tablet every 8 hours, as prescribed. Finish the entire prescription unless told otherwise by a dentist. For pain, you may take [id number] ibuprofen (Advil, Motrin), 2 to 3 tablets (400-600 mg) every 8 hours, with food, as needed for discomfort. You may take 1 tablet of the prescription opioid [place] up to every 12 hours, as prescribed. If you take [place], do not drive or operate heavy machinery for 12 hours after taking. [place] may cause constipation, so consider taking a stool softener. As discussed, it is very important that you follow-up with a dentist at the next available appointment. If any other problems, please do not hesitate to return to the ER. Sepsis Event Note - Evaluation Sepsis Screening Result: No Definite Risk - Focused Exam Vital Signs: Vital Signs Temp Pulse Resp BP Pulse Ox 03/09/20 14:15 36.1 C 72 18 180/82 H 94 L Date Exam was Performed: 03/09/20 Time Exam was Performed: 18:30
== END 2020-03-09 14:50 | disposition home or self-care (01) ==
LOC: JD.ED 14:09
CPT/HCPCS: 99282; 99283

== ENCOUNTER 2020-08-22 05:43 | Inpatient (IN) | payer OTHER, MEDICARE, BC ==
[2020-08-22] MEDS ORDERED: Diphtheria,Pertussis(Acell),Tetanus Vaccine 0.5 ML Syringe IM ONE (05:54)
[2020-08-22] MEDS ORDERED: Ondansetron 4 MG/2 ML SDV IVPUSH ONE (06:00)
[2020-08-22] MEDS ORDERED: Lactated Ringers 1,000 ML IV ONE (06:00)
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
[2020-08-22] MEDS ORDERED: Lidocaine 1% 50 ML MDV ONE ×2 (06:26→09:22)
[2020-08-22] MEDS ORDERED: Iopamidol 755 Mg/ML 100 ML Bottle IVPUSH ONE (06:58)
[2020-08-22] MEDS: Lactated Ringers 1,000 ML IV SCH ×2 (07:00→13:30)
[2020-08-22] MEDS ORDERED: Rocuronium 50 MG/5 ML Vial ONE ×2 (09:32→12:22)
[2020-08-22] MEDS ORDERED: Lidocaine 1% 4 ML ONE (09:32)
[2020-08-22] MEDS ORDERED: Dexmedetomidine 200 MCG/2 ML SDV ONE (09:32)
[2020-08-22] MEDS ORDERED: Succinylcholine/Sod PF 100 MG/5 ML SYRINGE IV ONE (09:32)
[2020-08-22] MEDS ORDERED: fentaNYL 100 MCG/2 ML SDV ONE (09:32)
[2020-08-22] MEDS ORDERED: Propofol 200 MG/20 ML SDV ONE (09:32)
[2020-08-22] MEDS ORDERED: ePHEDrine 50 MG/ML SDV ONE ×2 (09:40→10:23)
[2020-08-22] MEDS ORDERED: Midazolam 1 MG/ML 2 ML SDV ONE (09:47)
[2020-08-22] MEDS ORDERED: ceFAZolin 1 GM Vial ONE (10:40)
[2020-08-22] MEDS ORDERED: Morphine 10 MG/ML SDV ONE ×2 (10:47→11:14)
[2020-08-22] MEDS ORDERED: Sodium Chloride 0.9% 500 ML ONE (11:05)
[2020-08-22] MEDS ORDERED: Metoprolol Tartrate 5 MG/5 ML SDV ONE (11:28)
[2020-08-22] MEDS ORDERED: Ondansetron 4 MG/2 ML SDV ONE (11:29)
[2020-08-22] MEDS ORDERED: Lidocaine 1% 2 ML ONE (11:29)
[2020-08-22] MEDS ORDERED: Ondansetron 4 MG/2 ML SDV IVPUSH PRN (12:04)
[2020-08-22] MEDS ORDERED: HYDROmorphone 0.5 MG/0.5 ML Syringe IVPUSH PRN (12:04)
[2020-08-22] MEDS ORDERED: fentaNYL 100 MCG/2 ML SDV IVPUSH PRN (12:04)
--- NOTE | 2020-08-22 12:10 | PCM.PREANE ---
Preanesthetic Assessment - Procedure Proposed Procedure: Exploratory laparotomy - Anesthesia/Transfusion/Family Hx Anesthesia History: Prior Anesthesia Without Reaction Family History of Anesthesia Reaction: No Transfusion History: No Prior Transfusion(s) Intubation History: Unknown Additional History: Patient has a history of tracheostomy s/p ENT surgery circa 2002 or 2004 per patient. Per patient, "They tried to dilate something and something collapsed. I was in the ICU 21 days." - Review of Systems General: No Symptoms Pulmonary: No Symptoms Cardiovascular: Lightheadedness Gastrointestinal: Other (Blood in pelvic and abdominal cavities) - Physical Assessment NPO Status Date: 08/22/20 (patient states that he hasn't eaten or drank anything today) Vital Signs: Last Vital Signs Temp 36.3 C 08/22/20 09:18 Pulse 65 08/22/20 09:18 Resp 16 08/22/20 09:18 BP 114/52 L 08/22/20 09:18 Pulse Ox 90 L 08/22/20 08:26 Height: 5 ft 11 in Weight: 135.171 kg ASA Class: 3E Mental Status: Alert & Oriented x3 Airway Class: Mallampati = 4 Dentition: Reports: Normal Dentition Thyro-Mental Finger Breadths: 2 (short, large neck) Mouth Opening Finger Breadths: 2 (small mouth opening - all you see is tongue) ROM/Head Extension: Full Lungs: Normal Respiratory Effort Cardiovascular: Regular Rate, Regular Rhythm - Lab Values: Laboratory Last Values WBC 7.58 K/mm3 (4.23-9.07) 08/22/20 05:54 RBC 4.94 M/mm3 (4.63-6.08) 08/22/20 05:54 Hgb 13.1 gm/dl (13.7-17.5) L 08/22/20 11:10 Hct 40.5 % (40.1-51.0) 08/22/20 11:10 MCV 90.7 fl (79.0-92.2) 08/22/20 05:54 MCH 28.7 pg (25.7-32.2) 08/22/20 05:54 MCHC 31.7 g/dl (32.2-35.5) L 08/22/20 05:54 RDW Std Deviation 48.0 fL (35.1-43.9) H 08/22/20 05:54 Plt Count 264 K/mm3 (163-337) 08/22/20 05:54 MPV 9.8 fl (9.4-12.3) 08/22/20 05:54 Neut % (Auto) 54.1 % (34.0-67.9) 08/22/20 05:54 Lymph % (Auto) 34.7 % (21.8-53.1) 08/22/20 05:54 [place] % (Auto) 7.5 % (5.3-12.2) 08/22/20 05:54 Eos % (Auto) 2.6 (0.8-7.0) 08/22/20 05:54 Baso % (Auto) 0.4 % (0.1-1.2) 08/22/20 05:54 Neut # (Auto) 4.10 K/mm3 (1.78-5.38) 08/22/20 05:54 Lymph # (Auto) 2.63 K/mm3 (1.32-3.57) 08/22/20 05:54 [place] # (Auto) 0.57 K/mm3 (0.30-0.82) 08/22/20 05:54 Eos # (Auto) 0.20 K/mm3 (0.04-0.54) 08/22/20 05:54 Baso # (Auto) 0.03 K/mm3 (0.01-0.08) 08/22/20 05:54 PT 11.6 SECONDS (9.7-11.7) 08/22/20 06:50 INR 1.09 08/22/20 06:50 APTT 25 SECONDS (22-31) 08/22/20 06:50 Sodium 142 mEq/L (136-145) 08/22/20 05:54 Potassium 3.9 mEq/L (3.5-5.1) 08/22/20 05:54 Chloride 105 mEq/L (98-107) 08/22/20 05:54 Carbon Dioxide 26 mEq/L (21-32) 08/22/20 05:54 Anion Gap 14.9 (5-15) 08/22/20 05:54 BUN 15 mg/dL (7-18) 08/22/20 05:54 Creatinine 1.1 mg/dL (0.7-1.3) 08/22/20 05:54 Est Cr Clr Drug Dosing 59.90 mL/min 08/22/20 05:54 Estimated GFR (MDRD) > 60 mL/min (>60) 08/22/20 05:54 BUN/Creatinine Ratio 13.6 (14-18) L 08/22/20 05:54 Glucose 131 mg/dL (83-115) H 08/22/20 05:54 POC Glucose 125 mg/dL (83-110) H 08/22/20 06:00 Calcium 8.9 mg/dL (8.5-10.1) 08/22/20 05:54 Total Bilirubin 0.7 mg/dL (0.2-1.0) 08/22/20 05:54 AST 30 U/L (15-37) 08/22/20 05:54 ALT 39 U/L (16-63) 08/22/20 05:54 Alkaline Phosphatase 77 U/L (46-116) 08/22/20 05:54 Troponin I < 0.017 ng/mL (0.00-0.056) 08/22/20 05:54 Total Protein 6.8 g/dl (6.4-8.2) 08/22/20 05:54 Albumin 3.1 g/dl (3.4-5.0) L 08/22/20 05:54 Globulin 3.7 gm/dL 08/22/20 05:54 Albumin/Globulin Ratio 0.8 (1-2) L 08/22/20 05:54 Lipase 89 U/L (73-393) 08/22/20 05:54 SARS-CoV-2 RNA (AUBREE) Negative (NEGATIVE) 08/22/20 06:51 SARS CoV-2 RNA Rapid AUBREE Negative (NEGATIVE) 08/22/20 06:51 Blood Type O NEGATIVE 08/22/20 05:54 Gel Antibody Screen Negative 08/22/20 05:54 Crossmatch See Detail 08/22/20 05:54 - Allergies Allergies/Adverse Reactions: Allergies Allergy/AdvReac Type Severity Reaction Status Date / Time Penicillins Allergy Rash Verified 08/22/20 06:01 - Blood Blood Available: No Product(s) Available: FFP - Anesthesia Plan Beta Marshall: Metoprolol Med Last Dose Date: 08/21/20 (patient takes in the evenings) - Acknowledgements Anesthesia Type Planned: General Anesthesia Pt an Appropriate Candidate for the Planned Anesthesia: Yes Alternatives and Risks of Anesthesia Discussed w Pt/Guardian: Yes Pt/Guardian Understands and Agrees with Anesthesia Plan: Yes Additional Comments: 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 Planned awake FFOI after look and exploration with Glidescope. Emergency tracheostomy to follow if required. Dr. Jara aware of plan. Will start arterial line prior to induction sequence, during precedex infusion. PreAnesthesia Questionnaire - Past Health History Medical/Surgical History: Denies Medical/Surgical History (SEE ENT history as well as cataracts) HEENT History: Reports: Glaucoma, Hard of Hearing, Other (See Below) (Remoted history of T&A with uvulectomy. Required tracheostomy post-op with 21 day ICU admission per patient.) Cardiovascular History: Reports: High Cholesterol, Hypertension Respiratory History: Reports: Sleep Apnea (nightly CPAP), Other (See Below) (Uses CPAP without O2 titration) Gastrointestinal History: Reports: GI Bleed Musculoskeletal History: Reports: Gout (suspected) - Past Surgical History HEENT Surgical History: Reports: Adenoidectomy, Cataract Surgery (bilateral), Tonsillectomy, Other (See Below) (Uvulectomy) Musculoskeletal Surgical History: Reports: Shoulder Surgery (arthroscopic), Other (See Below) (Right trigger finger release) - SUBSTANCE USE Tobacco Use Status *Q: Unknown Ever Used Tobacco - HOME MEDS Home Medications: Home Meds Allopurinol [Zyloprim] 300 mg PO BEDTIME 06/16/17 [History] Antiox.mv No.10/Omeg3s/Lut/John [I-Caps with Lutein-[place] 3 SFG] 1 tab PO BEDTIME 06/16/17 [History] Hydrochlorothiazide 50 mg PO BEDTIME 06/16/17 [History] Lisinopril 30 mg PO BEDTIME 06/16/17 [History] dilTIAZem HCL [Cardizem Cd] 180 mg PO BEDTIME 10/22/19 [History] Metoprolol Succinate 100 mg PO BEDTIME 11/26/19 [History] Pravastatin [Pravachol] 20 mg PO BEDTIME 11/26/19 [History] Clindamycin HCl 300 mg PO Q8H #30 capsule 03/09/20 [Rx] Hydrocodone/Acetaminophen [Hydrocodone-Acetamin 5-300 mg] 1 each PO BID PRN #10 tablet 03/09/20 [Rx] - CURRENT (IN HOUSE) MEDS Current Meds: Current Medications Lactated Ringer's (Ringers, Lactated) 1,000 mls @ 125 mls/hr IV ASDIRECTED IRISH Last Admin: 08/22/20 07:00 Dose: 125 mls/hr Documented by: Discontinued Medications Cefazolin Sodium (Ancef) Confirm Administered Dose 3 gm .ROUTE .STK-MED ONE Stop: 08/22/20 10:41 Dexmedetomidine HCl (Precedex) Confirm Administered Dose 200 mcg .ROUTE .STK-MED ONE Stop: 08/22/20 09:33 Diphtheria/Tetanus/Acell Pertussis (Adacel) 0.5 ml IM .ONCE ONE Stop: 08/22/20 05:55 Last Admin: 08/22/20 06:33 Dose: 0.5 ml Documented by: Ephedrine Sulfate (Ephedrine Sulfate) Confirm Administered Dose 50 mg .ROUTE .STK-MED ONE Stop: 08/22/20 09:41 Ephedrine Sulfate (Ephedrine Sulfate) Confirm Administered Dose 50 mg .ROUTE .STK-MED ONE Stop: 08/22/20 10:24 Fentanyl (Sublimaze) Confirm Administered Dose 100 mcg .ROUTE .STK-MED ONE Stop: 08/22/20 09:33 Glycopyrrolate (Robinul) Confirm Administered Dose 0.4 mg .ROUTE .STK-MED ONE Stop: 08/22/20 10:52 Lactated Ringer's (Ringers, Lactated) 1,000 mls @ 999 mls/hr IV .BOLUS ONE Stop: 08/22/20 07:00 Last Admin: 08/22/20 06:33 Dose: 999 mls/hr Documented by: Lidocaine HCl (Xylocaine-Mpf 1%) Confirm Administered Dose 4 mls @ as directed .ROUTE .STK-MED ONE Stop: 08/22/20 09:33 Sodium Chloride (Normal Saline) Confirm Administered Dose 500 mls @ as directed .ROUTE .STK-MED ONE Stop: 08/22/20 11:06 Lidocaine HCl (Xylocaine-Mpf 1%) Confirm Administered Dose 2 mls @ as directed .ROUTE .STK-MED ONE Stop: 08/22/20 11:30 Iopamidol (Isovue-370 (76%)) 100 ml IVPUSH ONETIME ONE Stop: 08/22/20 06:59 Last Admin: 08/22/20 06:59 Dose: 100 ml Documented by: Lidocaine HCl (Xylocaine 1%) Confirm Administered Dose 50 ml .ROUTE .STK-MED ONE Stop: 08/22/20 06:27 Last Admin: 08/22/20 07:00 Dose: 50 ml Documented by: Lidocaine HCl (Xylocaine 1%) Confirm Administered Dose 50 ml .ROUTE .STK-MED ONE Stop: 08/22/20 09:23 Metoprolol Tartrate (Lopressor) Confirm Administered Dose 5 mg .ROUTE .STK-MED ONE Stop: 08/22/20 11:29 Midazolam HCl (Versed 1 Mg/Ml) Confirm Administered Dose 2 mg .ROUTE .STK-MED ONE Stop: 08/22/20 09:48 Miscellaneous Medication (Phenylephrine 1 Mg/10 Ml-Ns) Confirm Administered Dose 1 mg .ROUTE .STK-MED ONE Stop: 08/22/20 09:41 Morphine Sulfate (Morphine) Confirm Administered Dose 10 mg .ROUTE .STK-MED ONE Stop: 08/22/20 10:48 Morphine Sulfate (Morphine) Confirm Administered Dose 10 mg .ROUTE .STK-MED ONE Stop: 08/22/20 11:15 Ondansetron HCl (Zofran) 4 mg IVPUSH ONETIME ONE Stop: 08/22/20 06:01 Last Admin: 08/22/20 06:33 Dose: 4 mg Documented by: Ondansetron HCl (Zofran) Confirm Administered Dose 4 mg .ROUTE .STK-MED ONE Stop: 08/22/20 11:30 Propofol (Diprivan 20 Ml) Confirm Administered Dose 400 mg .ROUTE .STK-MED ONE Stop: 08/22/20 09:33 Rocuronium [place] (Zemuron) Confirm Administered Dose 50 mg .ROUTE .STK-MED ONE Stop: 08/22/20 09:33 Tranexamic Acid (Cyklokapron) 1,000 mg IVPUSH ONETIME ONE Stop: 08/22/20 08:43 Last Admin: 08/22/20 09:08 Dose: 1,000 mg Documented by:
[2020-08-22] MEDS ORDERED: Lactated Ringers 1,000 ML ONE ×4 (12:22)
[2020-08-22] MEDS ORDERED: Ondansetron 4 MG Tab.DIS PO PRN (13:38)
[2020-08-22] MEDS ORDERED: Albuterol 0.083% 2.5 MG/3 ML Neb Soln NEB PRN (13:38)
--- NOTE | 2020-08-22 13:54 | PCM.POSTAN ---
POST ANESTHESIA ASSESSMENT - MENTAL STATUS Mental Status: Alert, Somnolent - VITAL SIGNS Vital Signs: Last Vital Signs Temp 36.3 C 08/22/20 09:18 Pulse 65 08/22/20 09:18 Resp 16 08/22/20 09:18 BP 114/52 L 08/22/20 09:18 Pulse Ox 90 L 08/22/20 08:26 - RESPIRATORY Respiratory Status: Respiratory Rate WNL, Airway Patent (Patient requires nasal pharyneal airway and NRB 100% to transfer to ICU), O2 Saturation Stable, Supplemental Oxygen - CARDIOVASCULAR CV Status: Pulse Rate WNL, Blood Pressure Stable - GASTROINTESTINAL GI Status: Other (Patient with laparotomy - no bowel sounds - large midline incision stapled) - PAIN Pain Score: 0 (patient follows commands but is not giving pain score - still metabolizing anesthesia) - OBSERVATIONS Free Text/Narrative:: Predicted difficult airway was instrumented with Glidescope #3 under Precedex, Versed, and fentanyl sedation with a few mLs of propofol. Patient has a very small mouth opening, with a Mallampati of 4, morbid obesity with redundant tissue throughout neck and airway. Large neck and history of a tracheostomy circa 2002 or 2004 from ENT surgery that bought him 21 days in the ICU. There was some concern about a possible subglottic stenosis post tracheostomy, so an awake look was chosen first, with the thought that if a tube could be safely advanced past the vocal cords that we could proceed. A second option was FFOI and third options was surgical airway by Dr. Jara. Cases like this should be considered with otolaryngology surgeon.
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
[2020-08-22] MEDS: HYDROmorphone 1 MG/ML Syringe IVPUSH PRN (16:00)
[2020-08-22] MEDS: Ondansetron 4 MG/2 ML SDV IV PRN (16:01)
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
[2020-08-23] MEDS: Lactated Ringers 1,000 ML IV SCH ×2 (00:19→10:44)
[2020-08-23] MEDS: HYDROmorphone 1 MG/ML Syringe IVPUSH PRN ×4 (03:34→16:57)
[2020-08-23] MEDS ORDERED: Metoprolol Succinate 50 MG Tab.ER PO SCH (10:15)
[2020-08-23] MEDS: Furosemide 40 MG/4 ML VIAL IVPUSH SCH (10:16)
[2020-08-23] MEDS: Acetaminophen 325 MG Tab PO SCH ×2 (10:16→18:07)
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
[2020-08-23] MEDS: oxyCODONE 5 MG Tab PO PRN (18:20)
[2020-08-24] MEDS: oxyCODONE 5 MG Tab PO PRN ×3 (00:56→17:49)
[2020-08-24] MEDS: Furosemide 40 MG/4 ML VIAL IVPUSH SCH (08:07)
[2020-08-24] MEDS: Metoprolol Succinate 50 MG Tab.ER PO SCH (08:08)
[2020-08-24] MEDS ORDERED: Magnesium Sulfate/Water 2 GM/50 ML BAG IV ONE (09:15)
[2020-08-24] MEDS ORDERED: Calcium Acetate 667 MG Cap PO ONE (09:15)
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
[2020-08-24] MEDS ORDERED: Sodium Phosphate 30 MMOLE in Sodium Chloride 0.9% 250 ML IV ONE (09:45)
[2020-08-24] MEDS: Enoxaparin 30 MG/0.3 ML Syringe SUBCUT SCH ×2 (10:14→20:03)
[2020-08-24] MEDS: Lactated Ringers 1,000 ML IV SCH (10:14)
[2020-08-24] MEDS: HYDROmorphone 1 MG/ML Syringe IVPUSH PRN (17:48)
--- NOTE | 2020-08-24 19:04 | PCM48HPAN ---
Post Anesthesia Note - EVALUATION WITHIN 48HRS OF ANESTHETIC Vital Signs in Normal Range: Yes Patient Participated in Evaluation: No Respiratory Function Stable: Yes Airway Patent: Yes Cardiovascular Function Stable: Yes Hydration Status Stable: Yes Pain Control Satisfactory: Yes (controlled by IV agents per Marek) Nausea and Vomiting Control Satisfactory: Yes Mental Status Recovered: Yes Vital Signs: Last Vital Signs Temp 36.8 C 08/24/20 16:00 Pulse 76 08/24/20 08:08 Resp 18 08/24/20 16:00 BP 150/70 H 08/24/20 16:00 Pulse Ox 91 L 08/24/20 18:09 - COMMENTS/OBSERVATIONS Free Text/Narrative:: No post-anesthesia concerns at this time. Have informed Dr. Jara if additional pain control is needed that a thoracic epidural can be considered.
[2020-08-25] MEDS: HYDROmorphone 1 MG/ML Syringe IVPUSH PRN ×3 (02:23→19:58)
[2020-08-25] MEDS: Lactated Ringers 1,000 ML IV SCH (04:59)
[2020-08-25] MEDS: oxyCODONE 5 MG Tab PO PRN ×3 (06:34→19:57)
[2020-08-25] MEDS: Metoprolol Succinate 50 MG Tab.ER PO SCH (09:12)
[2020-08-25] MEDS: Furosemide 40 MG/4 ML VIAL IVPUSH SCH (09:12)
[2020-08-25] MEDS: Enoxaparin 30 MG/0.3 ML Syringe SUBCUT SCH ×2 (09:14→19:59)
[2020-08-25] MEDS: Bisacodyl 10 MG Supp RECTAL SCH (09:26)
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
[2020-08-25] MEDS ORDERED: Sodium Phosphate 60 MMOLE in Sodium Chloride 0.9% 250 ML IV ONE (12:30)
[2020-08-25] MEDS: metroNIDAZOLE/Normal Saline 500 MG in Premix Bag 1 BAG IV SCH ×2 (12:44→19:57)
[2020-08-25] MEDS: Levofloxacin/Dextrose 5%-Water 750 MG in Premix Bag 1 BAG IV SCH (13:00)
[2020-08-26] MEDS: Lactated Ringers 1,000 ML IV SCH (03:09)
[2020-08-26] MEDS: metroNIDAZOLE/Normal Saline 500 MG in Premix Bag 1 BAG IV SCH ×3 (03:09→20:24)
[2020-08-26] MEDS: Bisacodyl 10 MG Supp RECTAL SCH (08:16)
[2020-08-26] MEDS: Furosemide 40 MG/4 ML VIAL IVPUSH SCH (08:16)
[2020-08-26] MEDS: Metoprolol Succinate 50 MG Tab.ER PO SCH (08:16)
[2020-08-26] MEDS: oxyCODONE 5 MG Tab PO PRN ×3 (08:32→21:38)
[2020-08-26] MEDS: Enoxaparin 30 MG/0.3 ML Syringe SUBCUT SCH ×2 (08:33→20:25)
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
[2020-08-26] MEDS: Levofloxacin/Dextrose 5%-Water 750 MG in Premix Bag 1 BAG IV SCH (13:00)
[2020-08-26] MEDS: Docusate Sodium 100 MG Cap PO SCH (20:24)
[2020-08-26] MEDS ORDERED: Allopurinol 300 MG Tab PO SCH (21:00)
[2020-08-26] MEDS ORDERED: Hydrochlorothiazide 25 MG Tab PO SCH (21:00)
[2020-08-26] MEDS ORDERED: Simvastatin 10 MG Tab PO SCH (21:00)
[2020-08-26] MEDS ORDERED: Lisinopril 10 MG Tab PO SCH (21:00)
[2020-08-26] MEDS ORDERED: Metoprolol Succinate 50 MG Tab.ER PO SCH (21:00)
[2020-08-26] MEDS ORDERED: Diltiazem 180 MG Cap.CD PO SCH (21:00)
[2020-08-27 03:36] VITALS: PULSE 54
[2020-08-27] MEDS: metroNIDAZOLE/Normal Saline 500 MG in Premix Bag 1 BAG IV SCH (04:18)
[2020-08-27] MEDS: oxyCODONE 5 MG Tab PO PRN ×2 (06:36→11:12)
[2020-08-27] MEDS: Docusate Sodium 100 MG Cap PO SCH (08:01)
[2020-08-27] MEDS: Enoxaparin 30 MG/0.3 ML Syringe SUBCUT SCH (08:01)
[2020-08-27] MEDS: Ondansetron 4 MG/2 ML SDV IV PRN (08:01)
[2020-08-27] MEDS: Bisacodyl 10 MG Supp RECTAL SCH (08:01)
[2020-08-27 08:02] VITALS: BP 156/86
[2020-08-27] MEDS ORDERED: Furosemide 40 MG Tab PO SCH (09:00)
[2020-08-27] MEDS ORDERED: amLODIPine 5 MG Tab PO SCH (09:00)
[2020-08-27] MEDS ORDERED: Phosphorus #1 250 MG Tab PO ONE (09:09)
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
== END 2020-08-27 12:00 | disposition home or self-care (01) | DRG 909 ==
LOC: SUPCPDRO 05:43 → JD.ED 05:43 → UNDOADMIN 08:29 → JD.MS 08:29 → JD.SDS 09:48 → JD.ICU 13:38
PROVIDERS: ADMIT Surgery; ATTEND Surgery
PROC: 0DB80ZZ Excision of Small Intestine, Open Approach (ICD-10-PCS; principal; 2020-08-22)
PROC: 3E1M38Z Irrigation of Peritoneal Cavity using Irrigating Substance, Percutaneous Approach (ICD-10-PCS; 2020-08-22)
PROC: 30233N1 Transfusion of Nonautologous Red Blood Cells into Peripheral Vein, Percutaneous Approach (ICD-10-PCS; 2020-08-22)
DX: S36.893A Laceration of other intra-abdominal organs, initial encounter (principal); I95.9 Hypotension, unspecified; H91.90 Unspecified hearing loss, unspecified ear; E78.00 Pure hypercholesterolemia, unspecified; I10 Essential (primary) hypertension; V49.40XA Driver injured in collision with unspecified motor vehicles in traffic accident, initial encounter; Z79.899 Other long term (current) drug therapy; G47.00 Insomnia, unspecified; M10.9 Gout, unspecified; Z90.89 Acquired absence of other organs; Z98.49 Cataract extraction status, unspecified eye; Z98.890 Other specified postprocedural states
CPT/HCPCS: 00790; 12001; 12004; 36415; 36430; 51702; 70450; 71045; 71260; 72125; 73030-LT; 73590-LT; 74177; 80048; 80053; 81001; 82962; 83690; 83735; 84100; 84484; 85014; 85018; 85025; 85610; 85730; 86850; 86900; 86901; 86922; 88307; 90471; 90715; 93005; 93010; 94660; 96374; 96375; 97110-GP; 97116-GP; 97162-GP; 97530-GP; 99285; 99285-25; A9270-GY; J0330; J0690; J1170; J1650; J1940; J1956; J2001; J2250; J2270; J2370; J2405; J2704; J2710; J3010; J3475; J3490; J7050; J7120; P9016; Q9967; U0002

== ENCOUNTER 2024-12-04 22:24 | Emergency (ER) | payer MEDICARE, OTHER ==
[2024-12-04 22:36] LABS: BASOPHILS ABSOLUTE AUTO 0.1 K/mm3 (0.0-0.2); BASOPHILS PERCENT AUTO 0.5 % (0.0-1.0); EOSINOPHILS ABSOLUTE AUTO 0.4 K/mm3 (0.0-0.4); EOSINOPHILS PERCENT AUTO 3.1 % (0.0-6.0); HEMATOCRIT 43.4 % (42.0-52.0); HEMOGLOBIN 13.9 gm/dl (14.0-18.0); IMMATURE GRAN ABSOLUTE AUTO 0.04 K/mm3 (0.00-0.05); IMMATURE GRAN PERCENT AUTO 0.3 % (0.0-0.4); LYMPHOCYTES ABSOLUTE AUTO 3.9 K/mm3 (1.0-4.8); LYMPHOCYTES PERCENT AUTO 32.4 % (24.0-44.0); MEAN CORPUSCULAR HEMOGLOBIN 29.1 pg (28.0-32.0); MEAN PLATELET VOLUME 9.7 fl (9.4-12.4); MONOCYTES ABSOLUTE AUTO 0.9 K/mm3 (0.0-0.8); MONOCYTES PERCENT AUTO 7.8 % (0.0-8.0); NEUTROPHILS ABSOLUTE AUTO 6.8 K/mm3 (1.8-7.7); NEUTROPHILS PERCENT AUTO 55.9 % (41.0-71.0); PLATELET COUNT,PLT 170 K/mm3 (150-400); RED BLOOD CELL COUNT 4.77 M/mm3 (4.52-5.90); WHITE BLOOD CELL COUNT,WBC 12.11 K/mm3 (3.9-11.3)
[2024-12-04 22:54] LABS: INR 1.03; PROTHROMBIN TIME 10.9 SECONDS (9.7-12.0)
[2024-12-04 22:57] VITALS: PULSE 61
[2024-12-04 22:59] LABS: A/G RATIO 0.9 (1-2); ALBUMIN 2.9 g/dl (3.4-5.0); ANION GAP 15.9 (5-15); BILIRUBIN TOTAL 0.5 mg/dL (0.2-1.0); BUN/CREATININE RATIO 18.3 (14-18); CALCIUM 8.7 mg/dL (8.5-10.1); CREATININE 1.2 mg/dL (0.7-1.3); EST CRCL DRUG DOSING (CG) 47.46 mL/min; MAGNESIUM 1.7 mg/dL (1.8-2.4); POTASSIUM,K 3.9 mEq/L (3.5-5.1); PROTEIN TOTAL,TP 6.2 g/dl (6.4-8.2)
[2024-12-04] MEDS: Acetaminophen 325 MG Tab PO ONE (23:08)
[2024-12-04 23:57] LABS: APPEARANCE,URINE CLEAR (Clear); BILIRUBIN,URINE NEGATIVE (Negative); COLOR,URINE YELLOW (Yellow); GLUCOSE,URINE NEGATIVE (Negative); KETONES,URINE NEGATIVE (Negative); LEUKOCYTE ESTERASE,URINE NEGATIVE (Negative); NITRITE,URINE NEGATIVE (Negative); OCCULT BLOOD,URINE NEGATIVE (Negative); PROTEIN,URINE NEGATIVE (Negative); UROBILINOGEN,URINE 0.2 (0.2-1.0)
[2024-12-05 00:07] LABS: BARBITURATE SCREEN,URINE NEGATIVE (CUTOFF=200); BENZODIAZEPINES SCREEN,URINE NEGATIVE (CUTOFF=150); BUPRENORPHINE SCREEN,URINE NEGATIVE (CUTOFF=10); METHADONE SCREEN, URINE NEGATIVE (CUT0FF=200); METHAMPHETAMINES SCREEN, URINE NEGATIVE (CUTOFF=500); OXYCODONE SCREEN,URINE NEGATIVE (CUT0FF=100); THC SCREEN,URINE 20 NG/ML NEGATIVE (CUTOFF=50)
[2024-12-05 00:10] LABS: AMPHETAMINES SCREEN, URINE NEGATIVE (CUTOFF=500)
[2024-12-05 00:18] LABS: EPITHELIAL CELLS,URINE 0-5 /hpf (0-5); RBC,URINE 0-5 /hpf (0-5); WBC,URINE 0-5 /hpf (0-5)
[2024-12-05 00:19] LABS: BACTERIA,URINE FEW /hpf (FEW); CALCIUM OXALATE CRYSTALS,URINE FEW; MUCUS,URINE NOT SEEN /hpf (FEW)
[2024-12-05 00:31] VITALS: BP 179/67
== END 2024-12-05 00:25 | disposition home or self-care (01) ==
LOC: JD.ED 22:24
DX: G45.9 Transient cerebral ischemic attack, unspecified (principal); M62.81 Muscle weakness (generalized); I10 Essential (primary) hypertension; E78.00 Pure hypercholesterolemia, unspecified; Z79.82 Long term (current) use of aspirin; Z79.899 Other long term (current) drug therapy; Z88.0 Allergy status to penicillin
CPT/HCPCS: 36415; 70450; 71045; 80053; 80306; 81001; 82550; 83690; 83735; 84484; 85025; 85610; 87651; 93005; 99285; A9270

== ENCOUNTER 2025-09-08 17:48 | Inpatient (IN) | payer OTHER ==
[2025-09-08 18:35] LABS: BASOPHILS ABSOLUTE AUTO 0.0 K/mm3 (0.0-0.2); BASOPHILS PERCENT AUTO 0.5 % (0.0-1.0); EOSINOPHILS ABSOLUTE AUTO 0.2 K/mm3 (0.0-0.4); EOSINOPHILS PERCENT AUTO 2.2 % (0.0-6.0); IMMATURE GRAN ABSOLUTE AUTO 0.02 K/mm3 (0.00-0.05); IMMATURE GRAN PERCENT AUTO 0.2 % (0.0-0.4); LYMPHOCYTES ABSOLUTE AUTO 2.1 K/mm3 (1.0-4.8); LYMPHOCYTES PERCENT AUTO 24.9 % (24.0-44.0); MEAN PLATELET VOLUME 8.9 fl (9.4-12.4); MONOCYTES ABSOLUTE AUTO 0.7 K/mm3 (0.0-0.8); MONOCYTES PERCENT AUTO 8.0 % (0.0-8.0); NEUTROPHILS ABSOLUTE AUTO 5.4 K/mm3 (1.8-7.7); NEUTROPHILS PERCENT AUTO 64.2 % (41.0-71.0); NRBC ABSOLUTE 0.00 (0.00-0.02); NRBC PERCENT 0.0 % (0.0-0.2); PLATELET COUNT,PLT 163 K/mm3 (150-400); RED BLOOD CELL COUNT 4.95 M/mm3 (4.52-5.90); WHITE BLOOD CELL COUNT,WBC 8.34 K/mm3 (3.9-11.3)
[2025-09-08 19:09] LABS: A/G RATIO 0.8 (1-2); ALANINE AMINOTRANSFERASE,ALT 26.0 U/L (16-63); ASPARTATE AMNIOTRANSFERASE,AST 16.0 U/L (15-37); BILIRUBIN TOTAL 0.8 mg/dL (0.2-1.0); BLOOD UREA NITROGEN,BUN 14.0 mg/dL (7-18); CARBON DIOXIDE,CO2 28.0 mEq/L (21-32); CHLORIDE,CL 105.0 mEq/L (98-107); CREATININE 1.2 mg/dL (0.7-1.3); EST CRCL DRUG DOSING (CG) 49.68 mL/min; ESTIMATED GFR 60.0 mL/min (>60); GLUCOSE RANDOM 147.0 mg/dL (70-99); POTASSIUM,K 4.1 mEq/L (3.5-5.1); PROTEIN TOTAL,TP 7.0 g/dl (6.4-8.2); SODIUM,NA 141.0 mEq/L (136-145); TROPONIN I HIGH SENSITIVITY 13.0 pg/mL (<=76)
[2025-09-08] MEDS ORDERED: Sodium Chloride 0.9% 10 ML Syringe FLUSH PRN (19:16)
[2025-09-08 19:17] LABS: INR 1.06
[2025-09-08 19:18] LABS: PTT,PARTIAL THROMBOPLSTIN TIME 27.3 SECONDS (21.7-31.4)
[2025-09-08] MEDS: Sodium Chloride 0.9% 10 ML Syringe FLUSH PRN (19:20)
[2025-09-08] MEDS: Iopamidol 755 Mg/ML 100 ML Bottle IVPUSH ONE (19:20)
[2025-09-08 20:17] LABS: APPEARANCE,URINE CLOUDY (Clear); GLUCOSE,URINE NEGATIVE (Negative); OCCULT BLOOD,URINE 1+ (Negative)
[2025-09-08] MEDS ORDERED: Naloxone 0.4 MG/ML SDV IVPUSH PRN (20:18)
[2025-09-08 20:26] LABS: EPITHELIAL CELLS,URINE 0-5 /hpf (0-5)
[2025-09-08 21:06] LABS: CHOLESTEROL HDL 35.0 mg/dL (40-59); CHOLESTEROL LDL DIRECT 76.0 mg/dL (<100); CHOLESTEROL TOTAL 142.0 mg/dL (<200); TSH 2.043 uIU/mL (0.358-3.74)
[2025-09-08] MEDS: cefTRIAXone 1 GM in Water For Injection, Sterile 10 ML IVPUSH ONE (22:35)
[2025-09-08] MEDS: Acetaminophen/oxyCODONE 325-5 MG Tab PO PRN (23:30)
[2025-09-09 05:37] LABS: BASOPHILS ABSOLUTE AUTO 0.0 K/mm3 (0.0-0.2); BASOPHILS PERCENT AUTO 0.5 % (0.0-1.0); EOSINOPHILS ABSOLUTE AUTO 0.2 K/mm3 (0.0-0.4); EOSINOPHILS PERCENT AUTO 2.7 % (0.0-6.0); IMMATURE GRAN ABSOLUTE AUTO 0.03 K/mm3 (0.00-0.05); IMMATURE GRAN PERCENT AUTO 0.4 % (0.0-0.4); LYMPHOCYTES ABSOLUTE AUTO 2.6 K/mm3 (1.0-4.8); LYMPHOCYTES PERCENT AUTO 31.3 % (24.0-44.0); MEAN PLATELET VOLUME 9.5 fl (9.4-12.4); MONOCYTES ABSOLUTE AUTO 0.9 K/mm3 (0.0-0.8); MONOCYTES PERCENT AUTO 11.0 % (0.0-8.0); NEUTROPHILS ABSOLUTE AUTO 4.4 K/mm3 (1.8-7.7); NEUTROPHILS PERCENT AUTO 54.1 % (41.0-71.0); NRBC ABSOLUTE 0.00 (0.00-0.02); NRBC PERCENT 0.0 % (0.0-0.2); PLATELET COUNT,PLT 157 K/mm3 (150-400); RED BLOOD CELL COUNT 4.72 M/mm3 (4.52-5.90); WHITE BLOOD CELL COUNT,WBC 8.18 K/mm3 (3.9-11.3)
[2025-09-09 05:48] LABS: BLOOD UREA NITROGEN,BUN 14.0 mg/dL (7-18); CARBON DIOXIDE,CO2 30.0 mEq/L (21-32); CHLORIDE,CL 104.0 mEq/L (98-107); CREATININE 1.3 mg/dL (0.7-1.3); EST CRCL DRUG DOSING (CG) 45.86 mL/min; ESTIMATED GFR 55.0 mL/min (>60); GLUCOSE RANDOM 118.0 mg/dL (70-99); POTASSIUM,K 4.3 mEq/L (3.5-5.1); SODIUM,NA 138.0 mEq/L (136-145)
[2025-09-09 05:49] LABS: A/G RATIO 0.8 (1-2); ALANINE AMINOTRANSFERASE,ALT 19.0 U/L (16-63); ASPARTATE AMNIOTRANSFERASE,AST 15.0 U/L (15-37); BILIRUBIN TOTAL 0.6 mg/dL (0.2-1.0); PROTEIN TOTAL,TP 6.6 g/dl (6.4-8.2)
[2025-09-09] MEDS: Fluticasone NASAL Spray 16 GM Bottle NASBOTH SCH (10:45)
[2025-09-09] MEDS ORDERED: Sodium Chloride 0.9% 10 ML Syringe FLUSH PRN ×3 (11:53→12:49)
[2025-09-09] MEDS ORDERED: Iopamidol 755 Mg/ML 100 ML Bottle IVPUSH ONE (12:49)
[2025-09-09] MEDS: Iopamidol 755 Mg/ML 100 ML Bottle IVPUSH ONE (12:50)
[2025-09-09] MEDS: Gadobenate Dimeglumine 529 MG/ML 20 ML SDV IVPUSH ONE (13:21)
[2025-09-09] MEDS: Ondansetron 4 MG/2 ML SDV IV PRN (13:40)
[2025-09-09] MEDS: Magnesium Sulfate 2 GM/50 mL 2 GM in Premix Bag 1 BAG IV ONE (15:56)
[2025-09-09] MEDS: cefTRIAXone 2 GM in Water For Injection, Sterile 20 ML IVPUSH SCH (21:33)
[2025-09-10 04:45] LABS: BASOPHILS ABSOLUTE AUTO 0.0 K/mm3 (0.0-0.2); BASOPHILS PERCENT AUTO 0.5 % (0.0-1.0); EOSINOPHILS ABSOLUTE AUTO 0.3 K/mm3 (0.0-0.4); EOSINOPHILS PERCENT AUTO 3.1 % (0.0-6.0); IMMATURE GRAN ABSOLUTE AUTO 0.03 K/mm3 (0.00-0.05); IMMATURE GRAN PERCENT AUTO 0.4 % (0.0-0.4); LYMPHOCYTES ABSOLUTE AUTO 2.7 K/mm3 (1.0-4.8); LYMPHOCYTES PERCENT AUTO 32.9 % (24.0-44.0); MEAN PLATELET VOLUME 9.4 fl (9.4-12.4); MONOCYTES ABSOLUTE AUTO 0.9 K/mm3 (0.0-0.8); MONOCYTES PERCENT AUTO 11.2 % (0.0-8.0); NEUTROPHILS ABSOLUTE AUTO 4.3 K/mm3 (1.8-7.7); NEUTROPHILS PERCENT AUTO 51.9 % (41.0-71.0); NRBC ABSOLUTE 0.00 (0.00-0.02); NRBC PERCENT 0.0 % (0.0-0.2); PLATELET COUNT,PLT 162 K/mm3 (150-400); RED BLOOD CELL COUNT 4.64 M/mm3 (4.52-5.90); WHITE BLOOD CELL COUNT,WBC 8.18 K/mm3 (3.9-11.3)
[2025-09-10 05:23] LABS: A/G RATIO 0.7 (1-2); ALANINE AMINOTRANSFERASE,ALT 16.0 U/L (16-63); ASPARTATE AMNIOTRANSFERASE,AST 14.0 U/L (15-37); BILIRUBIN TOTAL 0.4 mg/dL (0.2-1.0); BLOOD UREA NITROGEN,BUN 15.0 mg/dL (7-18); CARBON DIOXIDE,CO2 29.0 mEq/L (21-32); CHLORIDE,CL 102.0 mEq/L (98-107); CREATININE 1.1 mg/dL (0.7-1.3); EST CRCL DRUG DOSING (CG) 54.19 mL/min; ESTIMATED GFR 67.0 mL/min (>60); GLUCOSE RANDOM 107.0 mg/dL (70-99); POTASSIUM,K 4.8 mEq/L (3.5-5.1); PROTEIN TOTAL,TP 6.8 g/dl (6.4-8.2); SODIUM,NA 138.0 mEq/L (136-145)
[2025-09-10 09:00] VITALS: PULSE 63
[2025-09-10 11:12] VITALS: BP 140/65
== END 2025-09-10 10:55 | disposition home or self-care (01) | DRG 65 ==
LOC: JD.ED 17:48 → JD.MS 20:18
PROVIDERS: ADMIT Family Medicine; ATTEND Family Medicine
DX: I63.9 Cerebral infarction, unspecified (principal); N30.01 Acute cystitis with hematuria; E83.42 Hypomagnesemia; I10 Essential (primary) hypertension; N47.1 Phimosis; H40.9 Unspecified glaucoma; H91.90 Unspecified hearing loss, unspecified ear; E78.00 Pure hypercholesterolemia, unspecified; G47.30 Sleep apnea, unspecified; M10.9 Gout, unspecified; I11.0 Hypertensive heart disease with heart failure; M19.90 Unspecified osteoarthritis, unspecified site; I50.9 Heart failure, unspecified; Z96.659 Presence of unspecified artificial knee joint; Z87.891 Personal history of nicotine dependence; Z90.49 Acquired absence of other specified parts of digestive tract; Z88.0 Allergy status to penicillin; Z79.899 Other long term (current) drug therapy; Z79.82 Long term (current) use of aspirin; Z98.49 Cataract extraction status, unspecified eye; Z98.890 Other specified postprocedural states; Z87.19 Personal history of other diseases of the digestive system
CPT/HCPCS: 36415; 70450; 70496; 70498; 71045; 80053; 80061; 81001; 82607; 83036; 83690; 83735; 83880; 84443; 84484; 85025; 85610; 85730; 86140; 87086; 87088; 87186; 93005; 99285; Q9967; 51798; 70553; 70553-26; 74178; 74178-26; 93306; 94760; 94761; 97112-GP; 97116-GP; 97162-GP; 97165-GO; A4216; A9270-GY; A9577; J0696; J1171; J1650; J2405; J3475